=== PATIENT | male | born 1960 | race Caucasian/White ===

== ENCOUNTER 2019-07-10 09:29 | Day surgery (SDC) | payer BC, SELFPAY ==
--- NOTE | 2019-07-10 10:06 | W.PREOPHP ---
Assessment and Plan Assessment and plan (1) Left carpal tunnel syndrome: Status: Chronic Assessment and plan: Plan: Educated patient on surgery covering surgical technique, recovery process, benefits and risks including but not limited to risk of infection, blood clot, damage to soft tissue/blood vessels/nerves in detail. After discussion patient gives verbal understanding of risks and elects to proceed with scheduling surgery. Patient had opportunity to have questions answered to their satisfaction. They will contact office if issues arise. Patient will continue to be scheduled for left ECTR with Dr. Sanabria. History of Present Illness Narrative: Mr. Kelley is a 58-year-old left-hand dominant male who presents to clinic for scheduled left ECTR with Dr. Sanabria. Patient has been experiencing bilateral carpal tunnel since 2014 at which time he saw Dr. Main and had nerve conduction studies completed. Review of his chart shows nerve conduction studies from 02/05/[address] Harvey who as per her note states which reveal severe left carpal tunnel syndrome and moderate right carpal tunnel syndrome. He was offered surgery by Dr. Main but decided to wait. 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 Describes constant numbness in his thumb, index and middle fingers. He has tried nighttime bracing but continues to have symptoms that interfere with daily activities. Due to his continued symptoms he was offered and elected to proceed with surgical intervention. Review of Systems Cardiovascular Cardiovascular: Denies chest pain, Denies dyspnea and Denies dyspnea on exertion Respiratory Respiratory: Denies dyspnea and Denies dyspnea on exertion FORMERLY [facility], [facility] Medical History (Updated 07/10/19 @ 10:07 by Gwen Polanco) Anxiety (Chronic) BPH (benign prostatic hyperplasia) (Chronic) Depression (Chronic) High cholesterol (Chronic) Hx of atrial fibrillation, no current medication (Acute) pt. reports this was 20 years ago Hypertension (Chronic) Left carpal tunnel syndrome (Chronic) Right carpal tunnel syndrome (Acute) Surgical History (Updated 07/10/19 @ 09:47 by Amie Guevara) History of colonoscopy (Chronic) History of wisdom tooth extraction (Acute) Social History (Updated 06/09/19 @ 09:42 by Hernan Sabillon) Smoking/Tobacco Use Status: Never Alcohol Intake: current Alcohol Intake frequency: a few times a month Alcohol type: beer Drug use: Never Substance use type: does not use Details: alcohol: t-2, two beers Caregiver/Support person: No Household members: spouse and children Housing: house Communication Needs: None Pets and animals: Yes Pets and animals: cat(s) Sexually active: No Do you think of yourself as: straight/heterosexual Current gender identity: male What is your relationship status?: How often do you talk on the phone with friends or family?: once per week How often do you get together with friends or relatives?: once per week How often do you attend christian or episcopal services?: 1-3 times per year Do you belong to any clubs or organized social groups?: yes Panel score (0-1 are the most socially isolated patients): 2 What type of physical activity do you participate in: none /Sikh: Bahai Special needs: No Seatbelt use: sometimes Helmet use: Yes Helmet use: sometimes Drive intox or ride w/intox lifter/driver: No Do you feel safe at home: Yes Do you feel safe in your relationship?: Yes Meds Home Medications and Allergies Home Medications Medication Instructions Recorded Confirmed Type hydrochlorothiazide 25 mg tablet 25 mg PO QAM #90 tab-cap 06/07/19 07/10/19 Rx pravastatin 40 mg tablet 40 mg PO DAILY #90 tab-cap 06/07/19 07/10/19 Rx sertraline 50 mg tablet 75 mg PO DAILY #135 tab-cap 06/07/19 07/10/19 Rx tamsulosin 0.4 mg capsule 0.8 mg PO HS #180 tab-cap 06/07/19 07/10/19 Rx acetaminophen [Tylenol Extra 1,000 mg PO Q4H PRN 07/10/19 07/10/19 History Strength] Allergies Allergy/AdvReac Type Severity Reaction Status Date / Time lisinopril AdvReac Mild COUGH Unverified 07/10/19 09:43 Exam Const General: cooperative and no acute distress Resp Effort & Inspection: normal respiratory effort and able to speak in complete sentences Auscultation: clear to auscultation bilaterally, no rales, no rhonchi and no wheezes Cardio Heart Sounds: S1 normal, S2 normal and no murmurs
[2019-07-10] MEDS: Lactated Ringers 1,000 ML 80 ML IV (10:30)
[2019-07-10] MEDS: ceFAZolin 2 GM/50 ML BAG IVPB (10:45)
--- NOTE | 2019-07-10 11:25 | W.PM.DSUDISC ---
Discharge Plan Disposition Patient Disposition: HOME Condition: Good Discharge Details Reason For Visit: L ECTR Attending Provider: Jose Luis Sanabria Primary Care Provider: Angelique Dennison Home Meds and New Rx's Prescriptions: New hydrocodone-acetaminophen 5-325 mg tablet 1 tab PO Q6H PRN (Reason: pain) Qty: 7 RF: 0 Continued hydrochlorothiazide 25 mg tablet 25 mg PO QAM Qty: 90 RF: 3 pravastatin [Pravachol] 40 mg tablet 40 mg PO DAILY Qty: 90 RF: 3 sertraline 50 mg tablet 75 mg PO DAILY Qty: 135 RF: 4 tamsulosin 0.4 mg capsule 0.8 mg PO HS Qty: 180 RF: 3 acetaminophen [Tylenol Extra Strength] 500 mg Tablet 1,000 mg PO Q4H PRNRF: 0 Discharge Instructions Additional Instructions: Elevate L hand above heart level as much as possible overnite tonite. Wiggle fingers L hand 10 times/hr when awake to prevent swelling. Your fingers may stay numb for 24 hours due to nerve block I put in to decrease post-op pain. Keep splint and dressings dry and in place for 48 hours. After 48 hours, remove splint AND dressings and begin to move L wrist. Use L hand as much as pain allows. After you remove the dressings, may shower or bathe and get incision wet. Leave incision uncovered when it is dry and sealed. Take tylenol or ibuprofen for mild pain. Take hydrocodone for breakthru pain, if needed. Follow up with in 2 weeks. Referrals: Jose Luis Sanabria MD [ [facility] ST[facility]FF [facility]YSICIAN] - (f/u in 2 weeks.) Equipment/Supplies: Splint Activity:: Activity as Tolerated Remove Dressings/Wound Care:: 48 hours Shower/Bathe:: 48 hours Diet:: As Tolerated Discharge Orders Discharge Orders: Discharge Order (Routine); Ordered 07/10/19 Ordered By: Jose Luis Sanabria DS: Diagnosis Discharge Diagnosis (1) Left carpal tunnel syndrome: Status: Chronic
[2019-07-10 11:48] VITALS: BP 159/89; PULSE 50; RESP 16; TEMP 36.5; O2SAT 99
--- NOTE | 2019-07-10 17:21 | ROE_ITS ---
DATE OF PROCEDURE: July 10, 2019 PREOPERATIVE DIAGNOSIS: Carpal tunnel syndrome, left. POSTOPERATIVE DIAGNOSIS: Same. PROCEDURE: Endoscopic carpal tunnel release, left. ANESTHESIA: IV Regional, Eugene Foster CRNA SURGEON: Jose Luis Sanabria M.D. INDICATIONS: This is a 58-year-old white male with longstanding carpal tunnel syndrome bilaterally. The left is most symptomatic at this time, however. The diagnosis has been confirmed with nerve con duction studies. He is no longer getting any benefit from splinting. Carpal tunnel release was maira mmended to alleviate his symptoms permanently. The patient wished to undergo the endoscopic techniqu e of carpal tunnel release. The risks and complications of the procedure were explained to the patie nt in detail preoperatively. PROCEDURE: The patient was taken to the operating room on 07/10/19. He was placed supine on the ope rating table. An IV regional anesthesia was administered to the left upper extremity. Once good ane sthesia was obtained, the left hand, wrist and forearm were prepped and draped free in the usual ster ile fashion. An incision was then made in line with the proximal flexion crease of the left wrist, beginning at th e flexor carpi radialis tendon and extending to the flexor carpi ulnaris tendon. The incision was ca rried down to the fascia. Subcutaneous veins were cauterized. The palmaris longus tendon was retrac talita radially and then a distally-based fascial flap was created to gain access to the carpal canal. A synovial reflector was used to free soft tissue attachments from the undersurface of the volar carp al ligament. A series of obturators were inserted to make room for the endoscope. The Maria Fernanda endoscop e blade device was then inserted in the carpal canal and advanced until the distal edge of the volar carpal ligament was clearly visualized. At this point the trigger was depressed, elevating the blade . The blade was then brought out from distal to proximal through the incision, transecting the volar carpal ligament. Because of this patient's large size and thick ligament, the endoscope was the mikey nserted and the blade elevated again and a second pass was made to transect the volar carpal ligament . I then inserted the endoscope and watched the median nerve fall into the defect in the volar carpa l ligament that was caused by transection. I then used Littler scissors and performed a subcutaneous fasciotomy from the incision proximally a couple of inches. The wound margins were infiltrated with 0.5% Marcaine with an epinephrine solution and a median nerve block was performed with 0.5% Marcaine with an epinephrine solution. The wound was irrigated with saline solution. The skin edges were ap proximated with two horizontal mattress sutures of #4-0 nylon suture material. The wound was dressed with Xeroform gauze, sterile gauze 4x4's, wrapped with a Kerlix bandage and then wrapped with a 3-in ch FLOWER bandage. The left wrist was then placed in a commercial volar cockup wrist splint. The patie nt's IV regional anesthesia was reversed without complications. He was discharged to the recovery ro in good condition. The patient was discharged home from the Day Surgery Unit when fully recovered from his IV regional a nesthesia. He was given instructions to try to elevate his left hand above heart level as much as po ssible overnight tonight. He was encouraged to wiggle his fingers ten times an hour while awake to p revent swelling. He is to keep the dressings and splint dry and in place for 48 hours. After 48 [place] rs he is to remove his dressings and splint and start to move his left wrist. He may use his left giron nd as much as discomfort allows. After he removes the dressings in 48 hours he may shower or bathe a nd get his incision wet. He can leave the incision uncovered when it is dry and sealed. He will flakita e Tylenol or ibuprofen for mild pain. He was given a prescription for breakthrough pain of Hydrocodo ne with APAP 5/325, one tablet every six hours, if needed. He will follow-up with me in two weeks.
== END 2019-07-10 12:13 | disposition home or self-care (01) ==
PROVIDERS: PCP Internal Medicine; Visit Provider Orthopaedic Surgery
PROC: 01N54ZZ Release Median Nerve, Percutaneous Endoscopic Approach (ICD-10-PCS; CPT 29848; principal; 2019-07-10 10:30)
DX: G56.02 Carpal tunnel syndrome, left upper limb (principal)
CPT/HCPCS: 29848; NC; J0690; L3908

== ENCOUNTER 2019-07-25 01:40 | Outpatient (CLI) | payer BC, SELFPAY ==
[2019-07-25 09:19] LABS: Abs Immature Grans 0.02 k/cumm (0.0-0.09); Absolute Eosinophil Count 0.18 k/cumm (0.0-0.7); Absolute Lymphocyte Count 2.38 k/cumm (1.2-3.4); Absolute Monocyte Count 0.53 k/cumm (0.11-0.7); Basophils % 1.3; Eosinophils % 2.4; HCT 42.7 % (40.0-50.0); HGB 14.8 g/dL (13.5-17.5); Immature Grans % 0.3; Lymphocytes % 32.1; Mean Corp. HGB Concentration 34.7 g/dL (32.0-36.0); Mean Corpuscular Hemoglobin 29.7 pg (27.0-33.0); Mean Corpuscular Volume 85.6 fL (80-95); Mean Platelet Volume 9.2 fL (8.0-11.0); Monocytes % 7.2; Neutrophils % 56.7; Platelet Count 284 x1000/uL (130-400); RBC 4.99 m/cumm (4.50-6.00); RBC Distribution Width 13.2 % (11.8-14.1); White Blood Cell Count 7.41 k/cumm (4.4-10.8)
[2019-07-25 10:43] LABS: ALT 27 U/L (16-63); AST 12 U/L (15-37); Albumin 3.8 g/dL (3.4-5.0); Alkaline Phosphatase 69 U/L (46-116); Anion Gap 11.8 mmol/L (3-11); BUN 17 mg/dL (7-18); Bilirubin, Total 0.9 mg/dL (0.2-1.0); CO2 25.2 mmol/L (21.0-32.0); Calculated LDL 152 mg/dL; Chloride 104 mmol/L (98-107); Cholesterol 225 mg/dL (<200); Glucose 100 mg/dL (74-106); HDL Cholesterol 38 mg/dL (40-60); Potassium 4.2 mmol/L (3.5-5.1); Sodium 141 mmol/L (136-145); Total Protein 7.6 g/dL (6.4-8.2); Triglyceride 178 mg/dL (<150)
== END 2019-07-25 02:00 ==
PROVIDERS: PCP Internal Medicine; Visit Provider Internal Medicine
DX: Z00.00 Encounter for general adult medical examination without abnormal findings (principal); I10 Essential (primary) hypertension
CPT/HCPCS: 36415; 80053; 80061; 85025

== ENCOUNTER 2020-10-21 04:13 | Outpatient (CLI) | payer BC, SELFPAY ==
[2020-10-21 13:01] LABS: Potassium 4.5 mmol/L (3.5-5.1)
[2020-10-21 22:13] LABS: PSA, Screening 4.8 ng/mL (0.0-3.5)
== END 2020-10-21 04:14 | disposition home or self-care (01) ==
LOC: LOS 04:13
PROVIDERS: PCP Nurse Practitioner; Visit Provider Nurse Practitioner
DX: I10 Essential (primary) hypertension (principal); Z12.5 Encounter for screening for malignant neoplasm of prostate
CPT/HCPCS: 36415; 84153; 82565; 84132

== ENCOUNTER 2021-07-04 01:24 | Outpatient (CLI) | payer BC, SELFPAY ==
[2021-07-04 09:12] LABS: Anion Gap 6.4 mmol/L (3-11); BUN 23 mg/dL (7-18); CO2 31.6 mmol/L (21.0-32.0); CREATININE 1.2 mg/dL (0.70-1.30); Calcium 9.4 mg/dL (8.5-10.1); Calculated LDL 100 mg/dL (<100); Chloride 102 mmol/L (98-107); Cholesterol 172 mg/dL (<200); Glucose 97 mg/dL (74-106); HDL Cholesterol 48 mg/dL (40-60); Potassium 4.7 mmol/L (3.5-5.1); Sodium 140 mmol/L (136-145); Triglyceride 124 mg/dL (<150)
== END 2021-07-04 01:25 | disposition home or self-care (01) ==
LOC: LBO 01:24
PROVIDERS: PCP Nurse Practitioner; Visit Provider Nurse Practitioner
DX: I10 Essential (primary) hypertension; E78.5 Hyperlipidemia, unspecified; Z12.5 Encounter for screening for malignant neoplasm of prostate
CPT/HCPCS: 36415; 80048; 80061; 84153

== ENCOUNTER 2021-07-09 01:25 | Outpatient (CLI) | payer BC, SELFPAY ==
[2021-07-09 16:39] LABS: ALT 25 U/L (16-63); AST 14 U/L (15-37); Alkaline Phosphatase 65 U/L (46-116); Bilirubin, Direct 0.3 mg/dL (0.0-0.2); Bilirubin, Total 1.5 mg/dL (0.2-1.0); Total Protein 7.6 g/dL (6.4-8.2)
== END 2021-07-09 01:26 | disposition home or self-care (01) ==
LOC: LBO 01:25
PROVIDERS: PCP Nurse Practitioner; Visit Provider Nurse Practitioner
DX: I10 Essential (primary) hypertension (principal)
CPT/HCPCS: 36415; 80076

== ENCOUNTER → 2021-08-26 00:11 | Outpatient (CLI) | payer BC, SELFPAY ==
--- NOTE | 2021-08-26 08:15 | DI.US_ITS ---
Exam(s) US PROSTATE BIOPSY EXAM: r/o prostate cancer,elevated psa,r97.20 COMPARISON: No exams were available for comparison TECHNIQUE: Ultrasound performed using standard protocol. FINDINGS: Sonography was provided for Dr. Michaels during the performance of a ultrasound-guided transrectal pros novak biopsy. Please refer to the procedure report for complete details. DATA REPOSITORY:
--- NOTE | 2021-08-26 13:00 | PROST_PTH ---
PATIENT: Moose Kelley LOC: [facility] U#:[id number] AGE/SX: 64/M ROOM: RE08/26/[address]: Jace Michaels MD : 1960 BED: DIS: SPEC #: [id number] RECD: 08/26/21 17:41 STATUS: TEX RESusan #: [id number] ERASMO: 08/26/21 13:[address]: Jace Michaels DEPT: Surgical Specimen RECD BY: Rosalee Zapata ENTERED: 08/26/21 17:44 SP TYPE: PROST OTHR DR: Maru Burdick, PhD GENERATION MANAGER Tissues: 1 - PROSTATE NEEDLE BIOPSY 2 - PROSTATE NEEDLE BIOPSY 3 - PROSTATE NEEDLE BIOPSY 4 - PROSTATE NEEDLE BIOPSY 5 - PROSTATE NEEDLE BIOPSY 6 - PROSTATE NEEDLE BIOPSY 7 - PROSTATE NEEDLE BIOPSY 8 - PROSTATE NEEDLE BIOPSY 9 - PROSTATE NEEDLE BIOPSY 10 - PROSTATE NEEDLE BIOPSY 11 - PROSTATE NEEDLE BIOPSY 12 - PROSTATE NEEDLE BIOPSY Procedures: GROSS AND MICRO LEVEL 4 Comments: [id number]
--- NOTE | 2021-08-26 13:25 | W.PM.OP ---
Date of service: 08/26/21 Time of Service: 13:25 Operative Note Operative Note DATE OF PROCEDURE: 08/26/21 PRE-OP DIAGNOSIS: Elevated PSA POST-OP DIAGNOSIS: same PROCEDURE: transrectal ultrasound-guided biopsy of the prostate SURGEON: Jace Michaels ANESTHESIA TYPE: Local By Surgeon Refer to Anesthesia Record ESTIMATED BLOOD LOSS: 15 PATHOLOGY: other (Laterally directed prostate biopsies) COMPLICATIONS: None Patient was transported to: no change Patient's condition: stable Implants: none Indications: This is a 60-year-old gentleman who was found to have an elevated PSA of 7.0 ng/mL. His digital rectal exam revealed no palpable nodules. He presents for ultrasound-guided biopsy of the prostate Findings: prostate volume 68 cc Procedure Description: The patient was given a mechanical and antibiotic bowel prep. He was brought to the radiology suite on 08/26/2021. He was placed in the left lateral position. Transrectal imaging of the prostate was then performed using a variable megahertz transducer. The prostate was imaged in transverse and longitudinal planes. The prostatic volume was calculated at 68 cc. The transition zone was enlarged and contained multiple cystic structures. The peripheral zone was isoechoic and showed no specific abnormalities. Periprosthetic nerve block was then performed with 1% lidocaine without epinephrine and a total of 12 laterally directed biopsies were taken. Each biopsy was labeled and sent to pathology for permanent section. The patient tolerated this procedure well.
== END ==
PROVIDERS: PCP Nurse Practitioner; Visit Provider Urology
DX: R97.20 Elevated prostate specific antigen [PSA] (principal)
CPT/HCPCS: 55700; 88305; 76942

== ENCOUNTER 2022-03-10 01:29 | Outpatient (CLI) | payer BC, SELFPAY ==
[2022-03-10 16:05] LABS: HCT 40.8 % (40.0-50.0); HGB 14.1 g/dL (13.5-17.5); MCH 29.4 pg (27.0-33.0); MCHC 34.6 % (32.0-36.0); MCV 85 fL (80-95); MPV 9.5 fL (8.0-11.0); Platelet Count 257 10^3/uL (130-400); RBC 4.79 10^6/uL (4.36-5.78); RDW 12.8 % (11.8-14.1); RDW-SD 39.6 fL; WBC 9.28 10^3/uL (4.4-10.8)
[2022-03-10 17:00] LABS: ALT 25 U/L (16-63); AST 14 U/L (15-37); Albumin 3.9 g/dL (3.4-5.0); Alkaline Phosphatase 64 U/L (46-116); Bilirubin, Direct 0.3 mg/dL (0.0-0.2); Bilirubin, Total 1.6 mg/dL (0.2-1.0); Total Protein 7.5 g/dL (6.4-8.2)
[2022-03-11 17:59] LABS: PSA, Diagnostic 2.7 ng/mL (<=4.5)
== END 2022-03-10 01:30 | disposition home or self-care (01) ==
LOC: LBO 01:29
PROVIDERS: PCP Nurse Practitioner; Visit Provider Urology
DX: R97.20 Elevated prostate specific antigen [PSA] (principal); E80.6 Other disorders of bilirubin metabolism; I10 Essential (primary) hypertension; N40.0 Benign prostatic hyperplasia without lower urinary tract symptoms
CPT/HCPCS: 36415; 80076; 85027; 84153

== ENCOUNTER 2022-09-08 01:56 | Outpatient (CLI) | payer BC, SELFPAY ==
[2022-09-08 15:54] LABS: HCT 42.4 % (40.0-50.0); HGB 14.4 g/dL (13.5-17.5); MCH 28.9 pg (27.0-33.0); MCV 85 fL (80-95); MPV 9.6 fL (8.0-11.0); Platelet Count 273 10^3/uL (130-400); RBC 4.98 10^6/uL (4.36-5.78); RDW 12.5 % (11.8-14.1); WBC 8.95 10^3/uL (4.4-10.8)
[2022-09-08 16:11] LABS: Hemoglobin A1C 5.7 % (<5.7)
[2022-09-08 16:18] LABS: ALT 26 U/L (16-63); AST 16 U/L (15-37); Alkaline Phosphatase 74 U/L (46-116); Anion Gap 8.5 mmol/L (3-11); BUN 14 mg/dL (7-18); Bilirubin, Total 1.4 mg/dL (0.2-1.0); CO2 26.5 mmol/L (21.0-32.0); CREATININE 1.3 mg/dL (0.70-1.30); Calcium 9.1 mg/dL (8.5-10.1); Chloride 102 mmol/L (98-107); Estimated GFR 62.89 (mL/min/1.73m2); Glucose 82 mg/dL (74-106); Potassium 3.5 mmol/L (3.5-5.1); Sodium 137 mmol/L (136-145); Total Protein 7.8 g/dL (6.4-8.2)
[2022-09-08 16:38] LABS: Calculated LDL 65 mg/dL (<100); Cholesterol 148 mg/dL (<200); HDL Cholesterol 41 mg/dL (40-60); Triglyceride 211 mg/dL (<150)
[2022-09-09 18:24] LABS: PSA, Diagnostic 2.3 ng/mL (<=4.5)
[2022-09-10 10:23] LABS: Hepatitis C Ab w Rflx HCV PCR Negative (Negative)
== END 2022-09-08 01:57 | disposition home or self-care (01) ==
LOC: LBO 01:56
PROVIDERS: PCP Nurse Practitioner Family; Visit Provider Urology
DX: R97.20 Elevated prostate specific antigen [PSA] (principal); E66.3 Overweight; E78.5 Hyperlipidemia, unspecified; F32.9 Major depressive disorder, single episode, unspecified; F41.9 Anxiety disorder, unspecified; G47.33 Obstructive sleep apnea (adult) (pediatric); I10 Essential (primary) hypertension; N40.0 Benign prostatic hyperplasia without lower urinary tract symptoms; R17 Unspecified jaundice; Z00.00 Encounter for general adult medical examination without abnormal findings
CPT/HCPCS: 36415; 80053; 80061; 85027; 86803; 83036; 84153

== ENCOUNTER 2023-08-13 08:55 | Day surgery (SDC) | payer BC, SELFPAY ==
--- NOTE | 2023-08-12 16:51 | W.ANESPRE ---
General Info Date of Service Date Performed: 08/13/23 Height: 5 ft 10.5 in Weight: 132.903 kg Body Mass Index (BMI): 41.4 Surgical Procedure: Operation Date: 08/13/23 10:50 Proposed Procedure Side Surgeon p Colonoscopy Alf Gunderson MD Meds Allergies and Home Medications Allergies Allergy/AdvReac Type Severity Reaction Status Date / Time lisinopril AdvReac Mild COUGH Unverified 08/13/23 09:31 Home Medication Medication Instructions Recorded rosuvastatin 10 mg tablet 10 mg PO DAILY #90 tabs 10/08/22 hydrochlorothiazide 25 mg tablet 25 mg PO QAM #90 tab-caps 12/22/22 losartan 100 mg tablet 100 mg PO DAILY #90 tabs 12/22/22 sertraline 100 mg tablet 100 mg PO DAILY #90 tabs 05/04/23 tamsulosin 0.4 mg capsule 0.8 mg (2 x 0.4 mg) PO HS #180 05/04/23 tab-caps bisacodyl 5 mg tablet,delayed 5 mg PO ONCE colonscopy bowel prep 08/03/23 release (Dulcolax (bisacodyl)) #4 tabs multivitamin with minerals-folic 1 tab PO DAILY 08/03/23 acid 120 mcg chewable tablet (Adult Multivitamin Gummies) polyethylene glycol 3350 17 238 g PO ONCE colonoscopy prep 08/03/23 gram/dose oral powder #238 grams Current Visit Medications: Current Medications Generic Name Dose Route Start Last Admin Trade Name Freq PRN Reason Stop Dose Admin Ringer's Solution 1,000 mls @ 80 mls/hr 08/13/23 06:00 IV 08/13/23 23:59 INFUSION JAIMEE IV Miscellaneous Supplies 1 each 08/13/23 06:00 Iv Access IV 08/13/23 23:59 DIRECTED JAIMEE Sodium Chloride 0 ml 08/13/23 06:00 Normal Saline Flush 10 Ml Syr IV 08/13/23 23:59 PRN PRN Sodium Chloride 0 ml 08/13/23 06:00 Normal Saline 10 Ml Vial IJ 08/13/23 23:59 DIRECTED PRN Sterile Water 0 ml 08/13/23 06:00 Water,Injection,Sterile 10 Ml Vial IJ 08/13/23 23:59 DIRECTED PRN PFSH Active Problems Active Problems: Problem Status Onset Code Total bilirubin, elevated R17 Elevated PSA R97.20 Ventral hernia K43.9 BPH (benign prostatic hyperplasia) 08/06/15 N40.0 Depressive disorder F32.9 Essential hypertension 04/21/13 I10 Hyperlipidemia 03/15/13 E78.5 Overweight 05/29/08 E66.3 Anxiety F41.9 ABHIJEET (obstructive sleep apnea) G47.33 Medical History Medical History COVID-19 07/24/21 Right carpal tunnel syndrome Left carpal tunnel syndrome Hx of atrial fibrillation, no current medication pt. reports this was 20 years ago Surgical History Surgical History History of carpal tunnel surgery of left wrist (07/10/19) History of wisdom tooth extraction History of colonoscopy Tobacco Smoking/Tobacco Use Status: Never Passive smoking exposure: No Second hand exposure: Yes Alcohol Alcohol Intake: current Alcohol intake frequency: a few times a month Alcohol type: beer Substance Use Substance use: Never Substance use type: does not use Details: alcohol: t-2, two beers Vital Signs and Lab Results Vital Signs Most Recent Vital Signs in EMR: Temp Pulse Resp BP Pulse Ox 36.8 C 69 18 145/96 H 97 08/13/23 09:15 08/13/23 09:15 08/13/23 09:15 08/13/23 09:15 08/13/23 09:15 Lab Results Blood Type / Crossmatch: No Data to Display Complete Blood Count: No Data to Display Complete Metabolic Panel: No Data to Display Liver Function Panel: No Data to Display Coagulation Panel: No Data to Display Cardiac Panel: No Data to Display Arterial Blood Gas: No Data to Display Venous Blood Gas: No Data to Display Pancreas Panel: No Data to Display Thyroid Panel: No Data to Display Infectious Disease: No Data to Display Blood Cultures: No Data to Display Toxicology Panel: No Data to Display Anesthesia Assessment and Plan Anesthesia History Personal History: No History of Anesthesia Complications Family History: No Family History of Anesthesia Complications Exercise Tolerance Exercise Tolerance: Metabolic Equivalents>4 Cardiac & Pulmonary Exam Cardiac Exam: Normal S1/S2 Heart Sounds Pulmonary Exam: Clear Bilateral Breath Sounds Implantable Cardiac Device Does patient have a Pacemaker or an ICD?: No Airway Exam Known Difficult Airway: No Mallampati Class: 3 Mouth Opening: Normal (> 3cm) Thyromental Distance: Greater than 3 cm Neck Range of Motion: Full ROM Neck Circumference: Thick Teeth Condition: Normal Dentition ASA Classification ASA Score: ASA 3 Emergency Case?: No NPO Status NPO Status: NPO Clears >2 hours, Solids >8 hours Anesthesia Plan Resuscitation Status: Full Code Anesthesia Technique: General Anesthesia Airway Planned: Natural Airway Monitors Used: Standard Monitors Preoperative Comments:: 62 yo male for colo. Sig PMHx: HTN, afib (not in it), ABHIJEET (uses CPAP), anxiety, depression. Previous Anes: - ECTR, clay block, prop.
[2023-08-13 09:15] VITALS: BP 145/96; PULSE 69; RESP 18; TEMP 36.8; O2SAT 97
[2023-08-13] MEDS: Lactated Ringers 1,000 ML 80 ML IV (09:42)
[2023-08-13 09:51] VITALS: BMI 41.4
--- NOTE | 2023-08-13 10:59 | W.COLOREPORT ---
Date of service: 08/13/23 Time of Service: 10:59 Colonoscopy Report Procedure Description: PROCEDURES PERFORMED: 1. Colonoscopy with hot snare polypectomy x2 PREOPERATIVE DIAGNOSIS: Surveillance colonoscopy POSTOPERATIVE DIAGNOSIS: Colon polyps, pandiverticulosis, grade 1-2 internal hemorrhoids, mild external hemorrhoids SURGEON: Jesus Alberto Gunderson MD INDICATION for procedure: The patient is a 62-year-old man due for surveillance colonoscopy. His last 1 was 10 years ago and reportedly normal. He has no family history of colon cancer no symptoms. FINDINGS: Terminal ileum was normal. In the transverse colon a 3-5 mm sessile polyp was removed with hot snare technique. Unfortunately it was not retrieved. In the rectum a 7-10 mm pedunculated polyp was removed with hot snare technique. There are diverticular changes present throughout the entire colon but are overall scattered and mild. No active inflammation. There is hemorrhoid disease both internal and external but overall mild. SURVEILLANCE interval/FOLLOW-UP: 3-10 years pending path results of the polyps. If sessile serrated or villous histology then 3 years. If simple adenomas then 7-10 years. SPECIMENS: yes EBL: Minimal COMPLICATIONS: None QUALITY of prep: Excellent Procedure in detail: The patient gave written consent and was in agreement with the indications, the potential risks as well as the benefits of the procedure. They taken to the endoscopy suite and laid in the left lateral decubitus position. A timeout was performed and anesthesia was administered which was tolerated well. I started the procedure. Digital rectal and visual examination was performed and grossly within normal limits. A well-lubricated flexible colonoscope was then introduced and passed without any notable difficulty all the way to the cecum identified by the ileocecal valve and the appendiceal orifice. The terminal ileum was briefly intubated and looked normal. The scope was then slowly withdrawn with the above-noted findings. The patient tolerated the procedure well and was taken to the PACU in hemodynamically stable condition.
--- NOTE | 2023-08-13 11:00 | W.PM.DSUDISC ---
Date of service: 08/13/23 Time of Service: 11:00 Discharge Plan Disposition Patient Disposition: Home Condition: Good Discharge Details Attending Provider: Alf Gunderson Primary Care Provider: Belkis Calle Home Meds and New Rx's Prescriptions: No Action multivit with min-folic acid [Adult Multivitamin Gummies] 120 mcg tablet,chewable 1 tab PO DAILY polyethylene glycol 3350 17 gram/dose powder 238 g PO ONCE Qty: 238 0RF Rx Instructions: take per colonoscopy instructions bisacodyl [Dulcolax (bisacodyl)] 5 mg tablet,delayed release (DR/EC) 5 mg PO ONCE Qty: 4 0RF Rx Instructions: take per colonoscopy instructions rosuvastatin 10 mg tablet 10 mg PO DAILY Qty: 90 4RF hydrochlorothiazide 25 mg tablet 25 mg PO QAM Qty: 90 4RF losartan 100 mg tablet 100 mg PO DAILY Qty: 90 4RF sertraline 100 mg tablet 100 mg PO DAILY Qty: 90 3RF tamsulosin 0.4 mg capsule 0.8 mg PO HS Qty: 180 4RF Discharge Instructions Additional Instructions: FINDINGS: A couple of polyps were found and removed from your colon today. They are nothing to worry about. This is why we do the colonoscopies. Diverticular changes were found today. This is extremely common, benign and nothing needs to be done about it as long as you do not have any symptoms from it. Mild hemorrhoid disease was seen today. This is benign, very common and nothing needs to be done about it. You should repeat another colonoscopy in 7 to 10 years. Stand Alone Forms: Colonoscopy Post Instructions Activity:: Activity as Tolerated Diet:: As Tolerated
--- NOTE | 2023-08-13 11:22 | BOWEL_PTH ---
PATIENT: Moose Kelley LOC: [facility] U#:[id number] AGE/SX: 62/M ROOM: RE08/13/[address]: Alf Gunderson : 1960 BED: DIS: 08/13/2023 SPEC #: [id number] RECD: 08/13/23 13:01 STATUS: TEX ARREGUIN #: [id number] ERASMO: 08/13/23 11:[address]: Alf Gunderson DEPT: Surgical Specimen RECD BY: Rosalee Zapata ENTERED: 08/13/23 13:02 SP TYPE: Bowel OTHR DR: Belkis Calle, MAYNOR Tissues: 1 - BIOPSY BOWEL Procedures: GROSS AND MICRO LEVEL 4 Comments: [id number]
[2023-08-13 11:30] VITALS: BP 119/76; PULSE 61; RESP 16; TEMP 36.3; O2SAT 97
--- NOTE | 2023-08-13 11:36 | W.ANESPOSTOP ---
Postoperative Evaluation Date, Time and Location Date Performed: 08/13/23 Time Performed: 11:36 Patient Location: Day Surgery Unit Vital Signs Most Recent Imported Vital Signs: Most Recent Vital Signs Temp Pulse Resp BP Pulse Ox 36.3 C L 61 16 119/76 97 08/13/23 11:30 08/13/23 11:30 08/13/23 11:30 08/13/23 11:30 08/13/23 11:30 Pain Score Most Recent Pain Score: Most Recent Pain Score Pain Level 0 08/13/23 11:30 Assessment Mental Status: Awake (Alert & Oriented to Patient Baseline) Airway and Respiratory Function: Patent airway with normal (patient baseline) respiratory exam Cardiovascular Function: Hemodynamically Stable Hydration Status: Adequately Hydrated Nausea & Vomiting: No Nausea or Vomiting Pain: Pt. Denies Any Pain Peripheral Nerve Block: Patient did not receive a nerve block
[2023-08-13 12:01] VITALS: BP 159/81; PULSE 56; RESP 16; TEMP 36.4; O2SAT 99
== END 2023-08-13 12:30 | disposition home or self-care (01) ==
PROVIDERS: PCP Nurse Practitioner Family; Visit Provider Student in an Organized Health Care Education/Training Program
PROC: 0DJD8ZZ Inspection of Lower Intestinal Tract, Via Natural or Artificial Opening Endoscopic (ICD-10-PCS; CPT 45378; principal; 2023-08-13 10:45)
DX: Z12.11 Encounter for screening for malignant neoplasm of colon (principal); D37.5 Neoplasm of uncertain behavior of rectum; K57.30 Diverticulosis of large intestine without perforation or abscess without bleeding; K64.0 First degree hemorrhoids; K64.1 Second degree hemorrhoids; K64.8 Other hemorrhoids; I10 Essential (primary) hypertension; G47.33 Obstructive sleep apnea (adult) (pediatric); F41.9 Anxiety disorder, unspecified; E66.3 Overweight; Z86.79 Personal history of other diseases of the circulatory system
CPT/HCPCS: 45385; 00123; 88305; J2704

== ENCOUNTER 2023-09-10 02:05 | Outpatient (CLI) | payer BC, SELFPAY ==
[2023-09-10 13:03] LABS: HCT 42.6 % (40.0-50.0); HGB 14.6 g/dL (13.5-17.5); MCH 28.5 pg (27.0-33.0); MCHC 34.3 % (32.0-36.0); MCV 83 fL (80-95); MPV 9.2 fL (8.0-11.0); Platelet Count 239 10^3/uL (130-400); RBC 5.12 10^6/uL (4.36-5.78); RDW 13.4 % (11.8-14.1); RDW-SD 40.7 fL; WBC 7.47 10^3/uL (4.4-10.8)
[2023-09-10 13:34] LABS: Anion Gap 11.4 mmol/L (3-11); BUN 15 mg/dL (7-18); CO2 26.6 mmol/L (21.0-32.0); CREATININE 1.4 mg/dL (0.70-1.30); Calcium 9.3 mg/dL (8.5-10.1); Chloride 102 mmol/L (98-107); Estimated GFR 57.18 (mL/min/1.73m2); Glucose 143 mg/dL (74-106); Potassium 3.2 mmol/L (3.5-5.1); Sodium 140 mmol/L (136-145)
[2023-09-10 14:57] LABS: Hemoglobin A1C 5.9 % (<5.7)
[2023-09-10 16:01] LABS: Calculated LDL 95 mg/dL (<100); Cholesterol 166 mg/dL (<200); HDL Cholesterol 44 mg/dL (40-60); Triglyceride 137 mg/dL (<150)
[2023-09-10 22:26] LABS: PSA, Diagnostic 2.8 ng/mL (<=4.5)
== END 2023-09-10 02:06 | disposition home or self-care (01) ==
PROVIDERS: PCP Nurse Practitioner Family; Visit Provider Urology
DX: R97.20 Elevated prostate specific antigen [PSA] (principal); Z00.00 Encounter for general adult medical examination without abnormal findings; I10 Essential (primary) hypertension; F32.9 Major depressive disorder, single episode, unspecified; N40.0 Benign prostatic hyperplasia without lower urinary tract symptoms; E78.5 Hyperlipidemia, unspecified
CPT/HCPCS: 36415; 80048; 80061; 85027; 83036; 84153

== ENCOUNTER 2023-12-14 05:23 | Outpatient (CLI) | payer BC, SELFPAY ==
[2023-12-14 17:23] LABS: Anion Gap 9.2 mmol/L (3-11); BUN 19 mg/dL (7-18); CO2 24.8 mmol/L (21.0-32.0); CREATININE 1.2 mg/dL (0.70-1.30); Calcium 9.1 mg/dL (8.5-10.1); Chloride 105 mmol/L (98-107); Glucose 103 mg/dL (74-106); Potassium 3.7 mmol/L (3.5-5.1); Sodium 139 mmol/L (136-145)
== END 2023-12-14 05:24 | disposition home or self-care (01) ==
LOC: LBO 05:23
PROVIDERS: PCP Nurse Practitioner Family; Visit Provider Nurse Practitioner Family
DX: I10 Essential (primary) hypertension (principal)
CPT/HCPCS: 36415; 80048

== ENCOUNTER 2024-09-11 02:07 | Outpatient (CLI) | payer BC, SELFPAY ==
[2024-09-11 16:13] LABS: Hemoglobin A1C 5.7 % (<5.7)
[2024-09-11 16:58] LABS: ALT 30 U/L (16-63); AST 16 U/L (15-37); Albumin 3.8 g/dL (3.4-5.0); Alkaline Phosphatase 62 U/L (46-116); BUN 16 mg/dL (7-18); Bilirubin, Total 1.21 mg/dL (0.2-1.0); CREATININE 1.2 mg/dL (0.70-1.30); Calcium 8.9 mg/dL (8.5-10.1); Calculated LDL 48 mg/dL (<100); Chloride 104 mmol/L (98-107); Cholesterol 121 mg/dL (<200); Estimated GFR 68.38 (mL/min/1.73m2); Glucose 100 mg/dL (74-106); HDL Cholesterol 47 mg/dL (40-60); Potassium 3.6 mmol/L (3.5-5.1); Sodium 143 mmol/L (136-145); Total Protein 7.3 g/dL (6.4-8.2); Triglyceride 130 mg/dL (<150)
== END 2024-09-11 02:08 | disposition home or self-care (01) ==
PROVIDERS: Urology; PCP Nurse Practitioner Family; Visit Provider Nurse Practitioner Family
DX: R97.20 Elevated prostate specific antigen [PSA] (principal); Z00.00 Encounter for general adult medical examination without abnormal findings; N40.0 Benign prostatic hyperplasia without lower urinary tract symptoms; I10 Essential (primary) hypertension; E78.5 Hyperlipidemia, unspecified; F32.9 Major depressive disorder, single episode, unspecified; F41.9 Anxiety disorder, unspecified; E66.3 Overweight
CPT/HCPCS: 36415; 80053; 80061; 83036; 84153